=== PATIENT | female | born 1990 | race Caucasian/White ===

== ENCOUNTER 2024-01-23 14:45 | Outpatient (CLI) | payer MEDICAID | END 2024-01-23 23:59 | disposition home or self-care (01) | LOC: RAD 14:45 | PROVIDERS: ATTEND Nurse Practitioner Family | DX: N92.1 Excessive and frequent menstruation with irregular cycle (principal) | CPT/HCPCS: 76830; 76856; 93976 ==

== ENCOUNTER → 2024-03-26 | Outpatient (CLI) | payer MEDICAID ==
[~2024-03-26] MED LIST: GADOTERATE MEGLUMINE 7.5 MMOL/15 ML VIAL IV ONE
== END | disposition home or self-care (01) ==
LOC: MRI 08:38
PROVIDERS: ATTEND Nurse Practitioner Family
DX: N83.201 Unspecified ovarian cyst, right side (principal); N83.8 Other noninflammatory disorders of ovary, fallopian tube and broad ligament
CPT/HCPCS: 72197; A9575

== ENCOUNTER 2024-11-14 16:20 | Emergency (ER) | payer BC, MEDICAID ==
[~2024-11-14] VITALS: Ht 152.4 cm; Wt 79.0 kg
[2024-11-14 16:25] VITALS: BP 126/77; PULSE 103; RESP 16; O2SAT 97
[2024-11-14] MEDS: LORazepam 0.5 MG tablet PO ONE (17:24)
[2024-11-14] MEDS ORDERED: LORA-268 PO (17:44)
[2024-11-14 17:58] VITALS: TEMP 98
== END 2024-11-14 18:08 | disposition home or self-care (01) ==
LOC: ER 16:21
DX: F41.9 Anxiety disorder, unspecified (principal); F48.9 Nonpsychotic mental disorder, unspecified
CPT/HCPCS: 99283